=== PATIENT | male | born 1965 | race Caucasian/White ===

== ENCOUNTER 2022-12-16 13:08 | Emergency (ER) | payer BC ==
[~2022-12-16] VITALS: Ht 175.3 cm; Wt 125.2 kg
[2022-12-16 13:23] VITALS: O2SAT 96
[2022-12-16] MEDS ORDERED: AMPICILLIN SOD/SULBACTAM NA 3 G in SODIUM CHLORIDE 0.9% 100 ML IV SCH (14:30)
[2022-12-16] MEDS ORDERED: KETOROLAC 15MG/ML VIAL IV ONE (14:30)
[2022-12-16] MEDS ORDERED: SODIUM CHLORIDE 0.9% 1,000 ML IV ONE (14:30)
[2022-12-16 15:16] LABS: INR 1.1; PROTHROMBIN TIME 11.8 sec (9.6-11.0)
[2022-12-16 15:29] LABS: BASOPHILS % 0.6 % (0.0-2.0); EOSINOPHILS % 1.2 % (0.0-5.0); HEMATOCRIT. 39.4 % (42.0-52.0); HEMOGLOBIN. 13.2 g/dL (14.0-18.0); LYMPHOCYTES % 17.8 % (20.0-50.0); MEAN CORPUSCULAR HEMOGLOBIN 29.1 pg (28.0-32.0); MEAN CORPUSCULAR HGB CONC 33.4 g/dL (31.0-37.0); MEAN CORPUSCULAR VOLUME 87.1 fL (80.0-94.0); MEAN PLATELET VOLUME 9.2 fl (7.4-10.4); NEUTROPHILS % 68.4 % (40.0-76.0); PLATELET 192 x1000/uL (130-400); RED BLOOD CELL COUNT 4.53 mill/uL (4.7-6.1); RED CELL DISTRIBUTION WIDTH 15.8 % (11.6-14.6); WHITE BLOOD COUNT 10.8 x1000/uL (4.5-11.0)
[2022-12-16] MEDS ORDERED: DEXAMETHASONE 4MG/ML 1ML VIAL IV ONE (15:45)
[2022-12-16] MEDS ORDERED: DEXAMETHASONE 10 MG/ML VIAL IV NR (15:45)
[2022-12-16 16:06] LABS: CHLORIDE 108 mEq/L (98-107); INDEX HEMOLYSI 1 (1-3); INDEX ICTERIC 1 (1-4); INDEX LIPEMIC 1 (1-3); POTASSIUM 3.9 mEq/L (3.5-5.1); SODIUM 140 mEq/L (136-145)
[2022-12-16 16:20] LABS: ALANINE AMINOTRANSFERASE 28 IU/L (13-61); ALBUMIN 3.1 g/dL (3.4-5.0); ASPARTATE AMINOTRANSFERASE 23 IU/L (15-37); BILIRUBIN TOTAL 1.2 mg/dL (0.1-1.0); CARBON DIOXIDE 29 mEq/L (21-32); CREATININE 0.9 mg/dL (0.6-1.3); GLUCOSE 103 mg/dL (70-105); PROTEIN TOTAL 7.3 g/dL (6.0-8.3); UREA NITROGEN BLOOD 20 mg/dL (7-21)
[2022-12-16 19:59] VITALS: BP 124/85; PULSE 78; RESP 18; TEMP 98.1
== END 2022-12-16 23:07 | disposition left against medical advice (07) ==
LOC: ER 13:08 → EDBEDREQTM 18:52 → EDBEDREQ 18:52 → CANBEDREQ 22:31 → ER 23:07
DX: K08.89 Other specified disorders of teeth and supporting structures (principal); R51.9 Headache, unspecified
CPT/HCPCS: 80053; 85025; 85610; 36415; 71045; 70487; 96365; 96375; 99285; J0295; J1100; J1885; J7050; J7030; Z7610 ×3